=== PATIENT | female | born 1965 | race Two or more races ===

== ENCOUNTER 2024-11-25 16:16 | Inpatient (IN) | payer OTHER ==
[~2024-11-25] VITALS: Ht 157.5 cm; Wt 86.2 kg
[2024-11-25] MEDS ORDERED: RINGERS SOLUTION,LACTATED 1,000 ML IV SCH (17:30)
[2024-11-25] MEDS ORDERED: TRAMADOL HCL 50 MG TABLET PO SCH (17:32)
[2024-11-25] MEDS ORDERED: DEXAMETHASONE SODIUM PHOSPHATE 4 MG/ML VIAL ONE (17:42)
[2024-11-25 18:24] LABS: BASO % 0.4 % (0.1-1.2); EOS # 0.28 (0.04-0.54); EOS % 4.1 % (0.7-7.0); LYMPH # 1.75 (1.18-3.74); LYMPH % 25.9 % (19.3-53.1); MEAN PLATELET VOLUME 10.50 fl (9.4-12.4); MONO # 0.55 (0.24-0.82); MONO % 8.1 % (4.7-12.5); NEUT # 4.12 (1.56-6.13); NEUT % 61.2 % (34.0-71.1); RED CELL DISTRIBUTION WIDTH 12.7 % (11.6-14.4)
[2024-11-25 18:38] LABS: ERYTHROCYTE SEDIMENTATION RATE 18 mm/hr (0-30)
[2024-11-25 18:52] LABS: INR 1.02
[2024-11-25 19:00] LABS: URINE APPEARANCE Clear; URINE BILIRRUBIN Negative (NEGATIVE); URINE BLOOD Negative; URINE COLOR Yellow; URINE GLUCOSE Negative (NEGATIVE); URINE KETONE Negative (NEGATIVE); URINE LEUKOCYTE Negative; URINE NITRATE Negative; URINE PROTEIN Trace (NEGATIVE); URINE UROBILINOGEN 0.2 E.U./dl
[2024-11-25 19:04] LABS: URINE BACTERIA 370.7 uL (0.0-1933); URINE CAST 3.07 uL (0.0-1.40); URINE EPITHELIAL CELLS 17.2 uL (0.0-38.8); URINE RBC 6.7 uL (0.0-20.8); URINE WBC 9.6 uL (0.0-23.2)
[2024-11-25 19:12] LABS: ALT/SGPT 63 U/L (12-78); AST/SGOT 41 U/L (15-37); BILIRUBIN TOTAL 0.26 mg/dL (0.3-1.2); BUN CREA RATIO 21 (7.0-25.0); CREATININE SERUM 0.97 mg/dL (0.55-1.02); GFR 58.78; GLOBULINA 3.4 G/DL (2.4-3.5); GLUCOSE FASTING 119 mg/dL (65-100); LDH 229 U/L (84-246); OSMOLALITY SERUM 294 MOSM/KG (275-295)
[2024-11-25 19:18] VITALS: BP 178/86; BP 187/88; O2SAT 96; O2SAT 97
[2024-11-25] MEDS ORDERED: ENALAPRILAT DIHYDRATE 1.25 MG/ML VIAL IV NR (19:30)
[2024-11-25 19:31] VITALS: BP 140/90
[2024-11-25 20:20] VITALS: BP 178/86; O2SAT 96
[2024-11-25] MEDS ORDERED: DEXAMETHASONE SODIUM PHOSPHATE 4 MG/ML VIAL IV SCH (21:00)
[2024-11-25] MEDS ORDERED: LOSARTAN POTASS50 MG (21:20)
[2024-11-25 21:57] VITALS: BP 163/81; O2SAT 95
[2024-11-26 00:35] VITALS: BP 139/76; O2SAT 97
[2024-11-26] MEDS ORDERED: DEXAMETHASONE SODIUM PHOSPHATE 4 MG/ML VIAL IV SCH (01:00)
[2024-11-26] MEDS ORDERED: LOSARTAN POTASSIUM 50 MG TABLET PO NR (09:45)
[2024-11-26 16:23] VITALS: BP 152/91; O2SAT 94
[2024-11-26] MEDS ORDERED: CARVEDILOL 6.25 MG TABLET PO NR (19:15)
[2024-11-26] MEDS ORDERED: GABAPENTIN 100 MG CAPSULE PO SCH (23:30)
[2024-11-27 01:22] VITALS: BP 142/80; O2SAT 97
[2024-11-27] MEDS ORDERED: CARVEDILOL 6.25 MG TABLET PO SCH (09:00)
[2024-11-27] MEDS ORDERED: LOSARTAN POTASSIUM 50 MG TABLET PO SCH (09:00)
[2024-11-27 10:15] VITALS: BP 174/92; O2SAT 97
[2024-11-27 16:00] VITALS: BP 173/88; O2SAT 97
[2024-11-28 00:43] VITALS: BP 172/84; O2SAT 95
[2024-11-28 05:06] LABS: CA 125 12.8 U/mL (0.0-38.1); CA 15-3 15.0 U/mL (0.0-25.0); CA 19-9 6.0 U/mL (0-35); CA 27.29 25.8 U/mL (0.0-38.6)
[2024-11-28 08:00] VITALS: BP 190/80; O2SAT 97
[2024-11-28 15:07] LABS: kappa lambda r 20.56 (0.26-1.65); kappa light 2282.0 mg/L (3.3-19.4)
[2024-11-28 16:00] VITALS: BP 168/89; O2SAT 95
[2024-11-28] MEDS ORDERED: LIDOCAINE 1 EACH ADH..PATCH TOP SCH (18:30)
[2024-11-29 00:30] VITALS: BP 146/78; O2SAT 98
[2024-11-29 08:13] VITALS: BP 194/92; O2SAT 95
[2024-11-29 09:07] LABS: BETA-2-MICROGLOBULINA 1.8 mg/L (0.6-2.4)
[2024-11-29 11:00] VITALS: BP 155/78
[2024-11-29 16:40] VITALS: BP 180/73; O2SAT 98
[2024-11-29] MEDS ORDERED: LIDOCAINE 1 EACH ADH..PATCH TOP SCH (17:00)
[2024-11-29] MEDS ORDERED: ENALAPRILAT DIHYDRATE 1.25 MG/ML VIAL IV PRN (17:15)
[2024-11-29] MEDS ORDERED: DEXAMETHASONE SODIUM PHOSPHATE 4 MG/ML VIAL IV SCH (21:00)
[2024-11-30 01:13] VITALS: BP 143/78; O2SAT 99
[2024-11-30 08:29] VITALS: BP 191/74; O2SAT 97
[2024-11-30 11:18] VITALS: BP 149/83
[2024-11-30 16:00] VITALS: BP 190/100; O2SAT 98
[2024-11-30 20:00] VITALS: BP 190/98; O2SAT 98
[2024-12-01] VITALS (7 sets, daily range): BP systolic 113–197; BP diastolic 67–119; O2SAT 96–98
[2024-12-01] MEDS ORDERED: CLONIDINE HCL 0.1 MG TABLET PO STA (05:49)
[2024-12-01] MEDS ORDERED: CLONIDINE HCL 0.1 MG TABLET PO SCH (17:00)
[2024-12-01] MEDS ORDERED: FAMOTIDINE/PF 20 MG/2 ML VIAL IV STA (17:31)
[2024-12-02 00:08] VITALS: BP 149/83; O2SAT 97
[2024-12-02 08:00] VITALS: BP 119/66; O2SAT 97
[2024-12-02] MEDS ORDERED: DEXAMETHASONE SODIUM PHOSPHATE 4 MG/ML VIAL IV SCH (09:00)
[2024-12-02] MEDS ORDERED: FAMOTIDINE/PF 20 MG/2 ML VIAL IV SCH (09:00)
[2024-12-02 15:30] VITALS: BP 109/75; O2SAT 97
[2024-12-02] MEDS ORDERED: MIDAZOLAM HCL 2 MG/2 ML VIAL IV PUSH ONE (22:15)
[2024-12-02] MEDS ORDERED: fentaNYL CITRATE 50 MCG/ML AMPUL IV PUSH ONE (22:15)
[2024-12-02 22:25] VITALS: BP 140/84; O2SAT 98
[2024-12-03 01:46] VITALS: BP 133/82; O2SAT 98
[2024-12-03 08:00] VITALS: BP 135/69; O2SAT 97
[2024-12-03 16:00] VITALS: BP 125/79; O2SAT 99
[2024-12-03] MEDS ORDERED: MORPHINE SULFATE 4 MG/ML CARTRIDGE IV PRN (20:30)
[2024-12-04] MEDS ORDERED: GABAPENTIN 100 MG CAPSULE PO SCH (01:00)
[2024-12-04 01:27] VITALS: BP 148/82; O2SAT 98
[2024-12-04 09:29] VITALS: BP 154/111; O2SAT 98
[2024-12-04 16:26] VITALS: BP 140/66; O2SAT 100
[2024-12-05 01:07] VITALS: BP 137/80; O2SAT 100
[2024-12-05 08:00] VITALS: BP 158/86; O2SAT 99
[2024-12-05 16:00] VITALS: BP 142/82; O2SAT 96
[2024-12-05] MEDS ORDERED: MORPHINE SULFATE 4 MG/ML CARTRIDGE IV PRN (21:45)
[2024-12-06 01:04] VITALS: BP 141/83; O2SAT 98
[2024-12-06 08:46] VITALS: BP 187/99; O2SAT 98
[2024-12-06 13:26] VITALS: BP 114/72; O2SAT 95
[2024-12-06 16:00] VITALS: BP 106/72; O2SAT 97
[2024-12-07 00:30] VITALS: BP 106/62; O2SAT 97
[2024-12-07 08:09] VITALS: BP 126/66; O2SAT 97
[2024-12-07 15:00] VITALS: BP 115/65; O2SAT 96
[2024-12-08] VITALS: BP 117/75; O2SAT 98
[2024-12-08 08:14] VITALS: BP 159/76; O2SAT 96
[2024-12-08 16:43] VITALS: BP 157/76; O2SAT 96
[2024-12-08] MEDS ORDERED: MORPHINE SULFATE 10 MG/5 ML PO STA (21:46)
[2024-12-08] MEDS ORDERED: MORPHINE SULFATE 10 MG/5 ML PO PRN (22:00)
[2024-12-08] MEDS ORDERED: MORPHINE SULFATE 4 MG/ML CARTRIDGE IV PRN (22:15)
[2024-12-09 00:30] VITALS: BP 138/79; O2SAT 98
[2024-12-09 08:00] VITALS: BP 150/80; O2SAT 97
[2024-12-09 16:00] VITALS: BP 155/87; O2SAT 96
[2024-12-09] MEDS ORDERED: COZAAR50 MG PO (18:31)
[2024-12-09] MEDS ORDERED: CARVEDILOL6.25 MG PO (18:31)
[2024-12-09] MEDS ORDERED: CLONIDINE HCL0.1 MG PO (18:32)
[2024-12-09] MEDS ORDERED: DEXAMETHASONE4 MG PO (18:33)
== END 2024-12-09 20:51 | disposition home or self-care (01) | DRG 948 ==
LOC: SURH 16:16 → SEC-K 16:16 → SURH 17:44
PROVIDERS: ADMIT Internal Medicine Hematology & Oncology; ATTEND Internal Medicine Hematology & Oncology
PROC: 8E0ZXY6 Isolation (ICD-10-PCS; 2024-11-25)
PROC: CW1N1ZZ Planar Nuclear Medicine Imaging of Whole Body using Technetium 99m (Tc-99m) (ICD-10-PCS; 2024-11-28)
PROC: 0JBF3ZX Excision of Left Upper Arm Subcutaneous Tissue and Fascia, Percutaneous Approach, Diagnostic (ICD-10-PCS; principal; 2024-12-02)
PROC: BP49ZZZ Ultrasonography of Left Shoulder (ICD-10-PCS; 2024-12-02)
PROC: 02HV33Z Insertion of Infusion Device into Superior Vena Cava, Percutaneous Approach (ICD-10-PCS; 2024-12-06)
PROC: B548ZZA Ultrasonography of Superior Vena Cava, Guidance (ICD-10-PCS; 2024-12-06)
DX: G89.3 Neoplasm related pain (acute) (chronic) (principal); C90.30 Solitary plasmacytoma not having achieved remission; M25.512 Pain in left shoulder; M54.89 Other dorsalgia; M54.2 Cervicalgia; M79.2 Neuralgia and neuritis, unspecified; M89.8X9 Other specified disorders of bone, unspecified site; I10 Essential (primary) hypertension

== ENCOUNTER 2024-12-26 19:49 | Inpatient (IN) | payer OTHER ==
[~2024-12-26] VITALS: Ht 154.9 cm; Wt 89.8 kg
[~2024-12-26 19:49] MED LIST: CARVEDILOL6.25 MG PO; CLONIDINE HCL0.1 MG PO; COZAAR50 MG PO; DEXAMETHASONE4 MG PO; LOSARTAN POTASS50 MG
--- NOTE | 2024-12-26 21:11 | NUR ---
PACIENTE ALERTA Y ORIENTADA EN [facility] [place] REFIERE SER PACIENTE DEL DR DAKOTAH BROWN ([place]), LA MISMA VERBALIZA QUE AL HACERSE ESTUDIO VENOSO HOY RESULTA TENER TROMBOS, LE REFIEREN PASAR POR NAHOMI DE EMERGENCIAS PARA SER ADMITIDA SE MIDEN V/S Y SE UBICA.
[2024-12-26] MEDS ORDERED: NEURONTIN800 MG (21:18)
[2024-12-26] MEDS ORDERED: FAMOTIDINE/PF 20 MG in 0.9 % SODIUM CHLORIDE 8 ML IV PUSH SCH (22:53)
[2024-12-26] MEDS ORDERED: ENOXAPARIN SODIUM 100 MG/ML SYRINGE SUBCUTANEO SCH (22:53)
[2024-12-26] MEDS ORDERED: CARVEDILOL 3.125 MG TABLET PO SCH (22:58)
[2024-12-26] MEDS ORDERED: 0.9 % SODIUM CHLORIDE 1,000 ML IV SCH (23:00)
[2024-12-26] MEDS ORDERED: ACETAMINOPHEN 500 MG GEL..CAP PO PRN (23:00)
[2024-12-26] MEDS ORDERED: TRAMADOL HCL 50 MG TABLET PO PRN (23:15)
[2024-12-27] MEDS ORDERED: PIPERACILLIN/TAZOBACTAM SODIUM 3.375 GM in DEXTROSE 5 % IN WATER 100 ML IV SCH
[2024-12-27] MEDS ORDERED: PIPERACILLIN/TAZOBACTAM SODIUM 3.375 GM VIAL IV ONE ×2 (00:59→08:25)
[2024-12-27] MEDS ORDERED: ENOXAPARIN SODIUM 80 MG/0.8 ML SYRINGE SUBCUTANEO ONE (00:59)
[2024-12-27] MEDS ORDERED: FAMOTIDINE/PF 20 MG/2 ML VIAL ONE ×2 (00:59→08:25)
[2024-12-27 02:14] LABS: BASO % 0.0 % (0.1-1.2); EOS # 0.05 (0.04-0.54); EOS % 0.8 % (0.7-7.0); LYMPH # 0.98 (1.18-3.74); LYMPH % 15.7 % (19.3-53.1); MEAN PLATELET VOLUME 9.80 fl (9.4-12.4); MONO # 0.49 (0.24-0.82); MONO % 7.9 % (4.7-12.5); NEUT # 4.63 (1.56-6.13); NEUT % 74.3 % (34.0-71.1); RED CELL DISTRIBUTION WIDTH 13.1 % (11.6-14.4)
[2024-12-27 02:29] LABS: INR 1.08
[2024-12-27 02:38] LABS: ALT/SGPT 39.0 U/L (12-78); AST/SGOT 10.0 U/L (15-37); BILIRUBIN TOTAL 0.29 mg/dL (0.3-1.2); BUN CREA RATIO 54.0 (7.0-25.0); CREATININE SERUM 0.61 mg/dL (0.55-1.02); GFR 100.39; GLOBULINA 2.8 G/DL (2.4-3.5); GLUCOSE FASTING 175.0 mg/dL (65-100); OSMOLALITY SERUM 300.0 MOSM/KG (275-295)
[2024-12-27] MEDS ORDERED: LOSARTAN POTASSIUM 50 MG TABLET PO SCH (09:00)
[2024-12-27 09:05] VITALS: BP 160/90; O2SAT 98
[2024-12-27] MEDS ORDERED: MORPHINE SULFATE 2 MG/ML SYRINGE IV PRN (17:45)
[2024-12-27 20:14] VITALS: BP 175/80; O2SAT 0
[2024-12-27 20:28] LABS: URINE APPEARANCE Clear; URINE BILIRRUBIN Negative (NEGATIVE); URINE BLOOD Negative; URINE COLOR Yellow; URINE GLUCOSE Negative (NEGATIVE); URINE KETONE Negative (NEGATIVE); URINE LEUKOCYTE Negative; URINE NITRATE Negative; URINE PROTEIN 30 (NEGATIVE); URINE UROBILINOGEN 1.0 E.U./dl
[2024-12-27 20:31] LABS: URINE BACTERIA 117.5 uL (0.0-1933); URINE CAST 1.75 uL (0.0-1.40); URINE EPITHELIAL CELLS 32.6 uL (0.0-38.8); URINE RBC 9.0 uL (0.0-20.8); URINE WBC 2.6 uL (0.0-23.2)
[2024-12-27 20:33] LABS: TYPE CELLS SQUAMOUS
[2024-12-27] MEDS ORDERED: ENOXAPARIN SODIUM 80 MG/0.8 ML SYRINGE SUBCUTANEO SCH (21:00)
[2024-12-28 02:02] VITALS: BP 175/97; O2SAT 95
[2024-12-28] MEDS ORDERED: FAMOTIDINE/PF 20 MG/2 ML VIAL ONE (08:08)
[2024-12-28 08:47] VITALS: BP 175/77; O2SAT 96
[2024-12-28] MEDS ORDERED: APIXABAN 5 MG TABLET PO SCH ×2 (09:00→21:00)
[2024-12-28] MEDS ORDERED: MORPHINE SULFATE 4 MG/ML VIAL IV PRN (09:30)
== END 2024-12-28 10:37 | disposition home or self-care (01) | DRG 272 ==
LOC: ER 19:49 → MEDJ 23:00
PROVIDERS: General Practice; Preventive Medicine Public Health & General Preventive Medicine; ADMIT Internal Medicine; ATTEND Internal Medicine
PROC: 02PY03Z Removal of Infusion Device from Great Vessel, Open Approach (ICD-10-PCS; principal; 2024-12-26)
PROC: B34KZZZ Ultrasonography of Bilateral Upper Extremity Arteries (ICD-10-PCS; 2024-12-26)
DX: I82.622 Acute embolism and thrombosis of deep veins of left upper extremity (principal); Z92.3 Personal history of irradiation; Z85.72 Personal history of non-Hodgkin lymphomas